=== PATIENT | female | born 1970 | race Caucasian/White ===

== ENCOUNTER 2019-03-13 17:46 | Emergency (ER) | payer MEDICAID ==
[2019-03-13 17:50] VITALS: BP 125/89; BMI 25.5
[2019-03-13] MEDS ORDERED: KEPPRA500 MG PO (17:51)
== END 2019-03-13 18:17 | disposition left against medical advice (07) ==
LOC: D.ER 17:46
DX: T78.40XA Allergy, unspecified, initial encounter (principal); X58.XXXA Exposure to other specified factors, initial encounter